=== PATIENT | male | born 1990 | race African-American/Black ===

== ENCOUNTER 2020-03-12 11:55 | Emergency (ER) | payer SELFPAY ==
[~2020-03-12] VITALS: Ht 175.3 cm; Wt 72.7 kg
[2020-03-12 12:50] VITALS: BP 111/66
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
== END 2020-03-12 14:42 | disposition home or self-care (01) ==
LOC: ER 11:55
DX: M54.5 Low back pain (principal); M25.511 Pain in right shoulder; M79.631 Pain in right forearm; V98.8XXA Other specified transport accidents, initial encounter; Y93.I9 Activity, other involving external motion; Y92.488 Other paved roadways as the place of occurrence of the external cause; Y99.8 Other external cause status
CPT/HCPCS: 73030; 73090; 99284